=== PATIENT | female | born 1965 | race Two or more races ===

== ENCOUNTER 2019-11-13 22:26 | Inpatient (IN) | payer OTHER ==
[~2019-11-13] VITALS: Ht 162.6 cm; Wt 112.5 kg
[~2019-11-13 22:26] MED LIST: LEVOTHYROXINE; PAXIL 20MG
--- NOTE | 2019-11-13 22:27 | NUR ---
SE RECIBE PTE EN AREA DE PRE TRIAGE QUIEN REFIERE PRESENTAR TOS ALREDEDOR DE UN MES BAJO SUPERVISION MEDICA. PTE MUESTRA RESULTADOS DE LABORATORIO DEL 2019 CON COVID 19 NEGATIVO (NASOFARINGEO) Y PRUEBA DE INFLUENZA NEGATIVO DE LA MISMA FECHA. LA MISMA REFIERE QUE CRANE IVY ESTUVO INGRESADA EN [facility] CON COVID-19 POSITIVO Y LE DIERON DE FILEMON CON RESULTADOS DE COVID-19 POSITIVO. LA PTE REFIERE QUE ESTUVO EXPUESTA A IVY LIZZ CUARENTENA YA QUE VIVEN EN LA MISMA CASA. PTE INDICA QUE COMENZO A PRESENTAR MARIAH TOS, DIFICULTAD RESPIRATORIA Y FIEBRE POR LO QUE VISITA HOY LA [place] DE EMERGENCIAS.
[2019-11-13] MEDS ORDERED: FLUOXETINE HCL60 MG (22:46)
[2019-11-13] MEDS ORDERED: SYNTHROID150 MCG (22:47)
[2019-11-13] MEDS ORDERED: PROZAC10 MG (22:47)
[2019-11-13] MEDS ORDERED: SINGULAIR 10MG10 MG (22:47)
[2019-11-13] MEDS ORDERED: XOPENEX HFA15 GM (22:48)
--- NOTE | 2019-11-13 23:54 | NUR ---
SE RECIBE PACIENTE ALERTA Y ORIENTADA EVALUADA POR EL DR. ALEX SE ORIENTA A PACIENTE SOBRE TRATAMIENTO MEDICO SE EXTRAEN MUESTRAS DE MAX Y SE ADMISNITRAN MEDICAMENTOS ANNAMARIE ORDEN MEDICA BAJO MEDIDAS ASEPTICAS.
--- NOTE | 2019-11-14 04:00 | NUR ---
SE RE-ORIENTA A PACIENTE SOBRE TRATAMIENTO. SE COLOCA A PACIENTE EN CAMA DE K5. MRAfia SHARMA REALIZA ABG A PACIENTE. SE MANTIENE EN OBSERVACION POR CAMBIOS.
--- NOTE | 2019-11-14 07:37 | NUR ---
PEROSNAL SECRETARIAL ANKITA.TAMIR SE COMUNICA CON SUPERVISION GENERAL PARA NOTIFICAR PRUEBA NASOFARINGEA PARA COVID-19 PCR. LA CUAL NOTIFICA SE COMUNICARA CON PARA AUTORIZACION DE LA MISMA.
--- NOTE | 2019-11-14 08:32 | NUR ---
SE ASISTE A LA DIEGO RENTA EN EVALUACION DE PTE, AL MOMENTO SE OBSERVA ANSIOSA, ALERTA Y ORIENTADA X 3 ESFERAS, LA DIEGO RENTA ASISTE A PTE, SE UBICA EN CAMA K5, CON BARANDAS SUPERIORES ELEVADAS. PIEL TIBIA AL TACTO. H/L PATENTE Y ARCADIO DE EDEMA O ERITEMA EN MANO RT. SE MIDEN S/V, AL MOMENTO PARAMETROS NORMALES. PTE PENDIENTE A REALIZAR PRUEBA COVID-19 NASOFARINGEAL. SE MANTIENE BAJO OBSERVACION, EN CAMA NIVEL MAS BAJO, GONZALEZ DE IDENTIFICACION Y BARANDAS ELEVADAS POR PRECAUCION.
--- NOTE | 2019-11-14 09:14 | NUR ---
TA COLOCA ORDENES MEDICAS.NOELLE ORIENTA PACIENTE SOBRE TRATAMIENTO. REFIERE COMPRENDER. PACIENTE REFIERE COMPRENDER. COLECTA MUESTRAS DE LABORATORIOS,ROTULA Y ENVIA PARA ANLISIS. ADMINISTRA MEDICAMENTOS ANNAMARIE ORDEN MEDICA SIGUIENDO MEDIDAS ASEPTICAS. PACIENTE NO PRESENTA REACCION ADVERSA AL MOMENTO. SE NOTIFICA RSV A PERSONAL DE TERAPIA RESPIRATORIA A .
[2019-11-16] MEDS ORDERED: PROZAC20 MG PO (08:00)
[2019-11-18] MEDS ORDERED: LORATADINE10 MG PO (16:11)
[2019-11-18] MEDS ORDERED: PROZAC20 MG PO (16:12)
[2019-11-18] MEDS ORDERED: INTESTINEX680 M1 PO (16:13)
[2019-11-18] MEDS ORDERED: MONODOX100 MG PO (16:15)
[2019-11-18] MEDS ORDERED: XOPENEX0.63 MG/3 IH (16:16)
[2019-11-22] MEDS ORDERED: PROZAC10 MG PO (09:51)
[2019-11-22] MEDS ORDERED: CHLORASEPTIC20 ML MM (09:51)
[2019-11-22] MEDS ORDERED: CLOTRIMAZOLE10 MG PO (09:51)
[2019-11-22] MEDS ORDERED: FLONASE16 GM NASAL (09:51)
[2019-11-22] MEDS ORDERED: ZINC SULFATE220 M2 PO (09:51)
[2019-11-22] MEDS ORDERED: MEDROLPACK PO (09:51)
[2019-11-22] MEDS ORDERED: SINGULAIR 10MG10 MG PO (09:51)
[2019-11-22] MEDS ORDERED: SYNTHROID150 MCG PO (09:51)
[2019-11-22] MEDS ORDERED: BENZONATATE100 MG PO (09:51)
== END 2019-11-22 18:13 | disposition home or self-care (01) | DRG 203 ==
LOC: ER 22:26 → MEDJ 11-14 12:52 → SURH 11-19 20:42
PROVIDERS: ADMIT Internal Medicine
PROC: 8E0ZXY6 Isolation (ICD-10-PCS; principal; 2019-11-14)
PROC: 4A033R1 Measurement of Arterial Saturation, Peripheral, Percutaneous Approach (ICD-10-PCS; 2019-11-14)
PROC: 3E0F7GC Introduction of Other Therapeutic Substance into Respiratory Tract, Via Natural or Artificial Opening (ICD-10-PCS; 2019-11-14)
DX: J45.901 Unspecified asthma with (acute) exacerbation (principal); J45.902 Unspecified asthma with status asthmaticus; Z03.818 Encounter for observation for suspected exposure to other biological agents ruled out; E66.8 Other obesity

== ENCOUNTER 2020-10-04 05:22 | Emergency (ER) | payer OTHER ==
[~2020-10-04] VITALS: Ht 162.6 cm; Wt 113.4 kg
[~2020-10-04 05:22] MED LIST changes: +BENZONATATE100 MG PO; +CHLORASEPTIC20 ML MM; +CLOTRIMAZOLE10 MG PO; +FLONASE16 GM NASAL; +FLUOXETINE HCL60 MG; +INTESTINEX680 M1 PO; +LORATADINE10 MG PO; +MEDROLPACK PO; +MONODOX100 MG PO; +PROZAC10 MG; +PROZAC10 MG PO; +PROZAC20 MG PO; +SINGULAIR 10MG10 MG; +SINGULAIR 10MG10 MG PO; +SYNTHROID150 MCG; +SYNTHROID150 MCG PO; +XOPENEX HFA15 GM; +XOPENEX0.63 MG/3 IH; +ZINC SULFATE220 M2 PO
[2020-10-04] MEDS ORDERED: COZAAR25 MG (05:44)
[2020-10-04] MEDS ORDERED: PYRIDIUM100 M1 PO (13:39)
[2020-10-04] MEDS ORDERED: CIPRO500 MG PO (13:39)
[2020-10-04] MEDS ORDERED: KETO10TA2 PO (14:01)
== END 2020-10-04 14:30 | disposition home or self-care (01) ==
LOC: ER 05:22
DX: R10.2 Pelvic and perineal pain (principal); R30.0 Dysuria

== ENCOUNTER 2020-10-11 12:19 | Emergency (ER) | payer OTHER ==
[~2020-10-11] VITALS: Ht 162.6 cm; Wt 113.4 kg
[~2020-10-11 12:19] MED LIST changes: +CIPRO500 MG PO; +COZAAR25 MG; +KETO10TA2 PO; +PYRIDIUM100 M1 PO
[2020-10-11] MEDS ORDERED: KETO10TA2 PO (16:42)
== END 2020-10-11 16:54 | disposition home or self-care (01) ==
LOC: ER 12:19
DX: R10.31 Right lower quadrant pain (principal)

== ENCOUNTER 2020-11-01 08:00 | Outpatient (CLI) | payer OTHER | END 2020-11-01 08:04 | disposition home or self-care (01) | LOC: RX STUDY 08:00 | PROVIDERS: ATTEND Surgery | DX: R10.31 Right lower quadrant pain (principal); K63.89 Other specified diseases of intestine ==

== ENCOUNTER 2021-12-06 04:13 | Emergency (ER) | payer OTHER ==
[~2021-12-06] VITALS: Ht 162.6 cm; Wt 113.4 kg
[2021-12-06] MEDS ORDERED: COVARYX H.S. T1 EACH (04:23)
[2021-12-06] MEDS ORDERED: GLUMETZA500 MG (04:23)
[2021-12-06] MEDS ORDERED: VERELAN PM100 MG (04:23)
== END 2021-12-06 13:37 | disposition home or self-care (01) ==
LOC: ER 04:13
DX: R42 Dizziness and giddiness (principal); R11.0 Nausea; I10 Essential (primary) hypertension; E03.9 Hypothyroidism, unspecified; E11.9 Type 2 diabetes mellitus without complications; Z79.899 Other long term (current) drug therapy

== ENCOUNTER 2021-12-07 14:47 | Outpatient (CLI) | payer OTHER ==
[~2021-12-07 14:47] MED LIST changes: +COVARYX H.S. T1 EACH; +GLUMETZA500 MG; +VERELAN PM100 MG
== END 2021-12-08 15:15 | disposition home or self-care (01) ==
LOC: MRI 14:47
PROVIDERS: ATTEND Otolaryngology
DX: R42 Dizziness and giddiness (principal)
CPT/HCPCS: 70551

== ENCOUNTER 2024-09-23 07:26 | Emergency (ER) | payer OTHER ==
[~2024-09-23] VITALS: Ht 162.6 cm; Wt 103.0 kg
[2024-09-23] MEDS ORDERED: COZAAR25 MG PO (07:54)
[2024-09-23] MEDS ORDERED: CLONAZEPAM0.5 MG PO (07:55)
[2024-09-23] MEDS ORDERED: LEVOTHYROXINE25 MCG PO (07:57)
[2024-09-23] MEDS ORDERED: KETOROLAC TROMETHAMINE 60 MG VIAL IM STA (08:51)
[2024-09-23] MEDS ORDERED: KETOROLAC TROMETHAMINE 60 MG VIAL IM ONE (08:59)
[2024-09-23 09:42] LABS: CALCIUM 9.6 mg/dL (8.5-10.1); CREATININE SERUM 0.54 mg/dL (0.55-1.02); GFR 115.16; POTASSIUM 4.38 mEq/L (3.5-5.1)
[2024-09-23 09:43] LABS: HEMATOCRIT 41.4 % (36.0-45.00); HEMOGLOBIN 14.4 g/dL (12.0-15.00); MEAN CELL VOLUME 87.1 fL (80.00-100.00); MEAN CORPUSCULAR HEMOGLOBIN 30.2 pg (27.00-32.0); MEAN CORPUSCULAR HGB CONC 34.7 g/dl (32.0-36.0); PLATELET COUNT 241 K/uL (150-450); RED BLOOD COUNT 4.75 M/uL (4.00-6.00); RED CELL DISTRIBUTION WIDTH 14.2 % (11.5-14.5)
[2024-09-23 09:54] LABS: ERYTHROCYTE SEDIMENTATION RATE 63 mm/hr
[2024-09-23 14:31] VITALS: BP 138/80; O2SAT 98
== END 2024-09-23 14:34 | disposition home or self-care (01) ==
LOC: ER 07:29
PROVIDERS: General Practice
DX: M25.561 Pain in right knee (principal); I10 Essential (primary) hypertension; E03.8 Other specified hypothyroidism; J45.909 Unspecified asthma, uncomplicated; M51.26 Other intervertebral disc displacement, lumbar region

== ENCOUNTER 2025-02-14 14:49 | Emergency (ER) | payer OTHER ==
[~2025-02-14] VITALS: Ht 162.6 cm; Wt 106.1 kg
[~2025-02-14 14:49] MED LIST changes: +CLONAZEPAM0.5 MG PO; +COZAAR25 MG PO; +LEVOTHYROXINE25 MCG PO
[2025-02-14] MEDS ORDERED: TOPAMAX25 MG PO (17:05)
[2025-02-14] MEDS ORDERED: SUMATRIPTAN SUCCINATE 6 MG/0.5 ML VIAL SUBCUTANEO STA (17:43)
[2025-02-14] MEDS ORDERED: SUMATRIPTAN SUCCINATE 6 MG/0.5 ML VIAL SUBCUTANEO ONE (17:58)
[2025-02-14] MEDS ORDERED: FAMOTIDINE/PF 20 MG/2 ML VIAL IV PUSH STA (18:48)
[2025-02-14] MEDS ORDERED: ONDANSETRON HCL 2 MG/ML VIAL IV STA (18:48)
[2025-02-14] MEDS ORDERED: FAMOTIDINE/PF 20 MG/2 ML VIAL ONE (19:06)
[2025-02-14] MEDS ORDERED: ONDANSETRON HCL 2 MG/ML VIAL ONE (19:06)
[2025-02-14] MEDS ORDERED: KETOROLAC TROMETHAMINE 30 MG VIAL IM STA (20:10)
[2025-02-14] MEDS ORDERED: KETOROLAC TROMETHAMINE 30 MG VIAL ONE (20:19)
[2025-02-15] MEDS ORDERED: BUTALB-ASPIRIN1 EACH (22:11)
== END 2025-02-14 21:18 | disposition home or self-care (01) ==
LOC: ER 14:58
DX: G43.909 Migraine, unspecified, not intractable, without status migrainosus (principal)

== ENCOUNTER 2025-02-15 21:34 | Emergency (ER) | payer OTHER ==
[~2025-02-15] VITALS: Ht 162.6 cm; Wt 106.1 kg
[~2025-02-15 21:34] MED LIST changes: +TOPAMAX25 MG PO
[2025-02-15] MEDS ORDERED: BUTALB-ASPIRIN1 EACH (22:11)
[2025-02-15] MEDS ORDERED: KETOROLAC TROMETHAMINE 30 MG VIAL IV ONE (23:00)
[2025-02-15] MEDS ORDERED: ACETAMINOPHEN WITH CODEINE 1 UDTAB TABLET PO ONE (23:00)
[2025-02-15] MEDS ORDERED: ONDANSETRON 4 MG TAB.RAPDIS PO ONE ×2 (23:00→23:17)
[2025-02-15] MEDS ORDERED: KETOROLAC TROMETHAMINE 30 MG VIAL ONE (23:17)
[2025-02-16] MEDS ORDERED: HALOPERIDOL LACTATE 5 MG/ML AMPUL IM STA (02:57)
[2025-02-16] MEDS ORDERED: DIPHENHYDRAMINE HCL 50 MG/ML VIAL 1ML IM STA (02:57)
[2025-02-16] MEDS ORDERED: DIPHENHYDRAMINE HCL 50 MG/ML VIAL 1ML ONE (03:24)
[2025-02-16] MEDS ORDERED: HALOPERIDOL LACTATE 5 MG/ML AMPUL ONE (03:25)
== END 2025-02-16 05:54 | disposition home or self-care (01) ==
LOC: ER 21:34
DX: G43.909 Migraine, unspecified, not intractable, without status migrainosus (principal); I10 Essential (primary) hypertension